=== PATIENT | male | born 1980 | race Caucasian/White ===

== ENCOUNTER 2024-07-30 22:52 | Inpatient (IN) | payer MEDICARE, OTHER, SELFPAY ==
[2024-07-30] VITALS (8 sets, daily range): BP systolic 94–160; BP diastolic 65–85; BMI 31.1
[2024-07-30 20:21] LABS: % Basophils 0.1 % (0-2); % Eosinophils 0.2 % (0-6); % Immature Granulocytes 0.5 % (0-0.5); % Lymphocytes 6.6 % (20.5-51.1); % Monocytes 8.6 % (1.7-9.3); Absolute Immature Granulocytes 0.1 10^3/uL (0-0.05); Absolute Lymphocytes 0.7 10^3/uL (1.2-3.4); Absolute Monocytes 0.9 10^3/uL (0.1-0.6); Hematocrit 38.9 % (39.0-52.0); Hemoglobin 12.7 g/dL (13.0-18.0); Mean Corp Hgb Conc. 32.6 g/dL (33.0-37.0); Mean Corpuscular Hgb 22.9 pg (27.0-31.0); Mean Corpuscular Volume 70.1 fL (80.0-94.0); Mean Platelet Volume 9.6 fL (7.4-10.4); Nucleated Red Blood Cells % 0 % (-); Platelet Count 206 10^3/uL (130-400); Red Blood Cell Count 5.55 10^6/uL (4.70-6.10); Red Cell Dist. Width 15.9 % (11.5-14.5); White Blood Cell Count 10.7 10^3/uL (4.8-10.8)
[2024-07-30 20:35] LABS: ALT (SGPT) 36 U/L (0-50); AST (SGOT) 51 U/L (17-59); Albumin 4.1 g/dl (3.5-5.0); Alkaline Phosphatase 71 U/L (38-126); Blood Urea Nitrogen 11 mg/dl (9-20); Calcium 9.1 mg/dl (8.4-10.2); Carbon Dioxide 24 mmol/L (22-30); Chloride 99 mmol/L (98-107); Estimated Creatinine Clearance > 125 ml/min; Glucose 119 mg/dl (70-99); Potassium 4.7 mmol/L (3.5-5.1); Sodium 133 mmol/L (135-145); Total Bilirubin 1.1 mg/dl (0.2-1.3); Total Protein 6.9 g/dl (6.3-8.2); eGFR > 60.00
[2024-07-30 20:41] LABS: COVID-19 Antigen Negative (Negative)
[2024-07-30 20:48] LABS: NT-proBNP 71.4 pg/ml; Troponin I < 0.012 ng/ml
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
[2024-07-30] MEDS: MAXIPIME 2000 MG IV (22:24)
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
[2024-07-30] MEDS: VANCOCIN 540 MG IV (22:51)
[2024-07-30] MEDS: TYLENOL 650 MG PO (23:42)
[2024-07-31] VITALS (12 sets, daily range): BP systolic 96–146; BP diastolic 61–97
[2024-07-31] MEDS: ZOSYN 50 IV ×5 (00:27→23:54)
[2024-07-31] MEDS: NSS 1000 IV ×3 (00:27→20:19)
[2024-07-31 06:42] LABS: ALT (SGPT) 30 U/L (0-50); AST (SGOT) 35 U/L (17-59); Albumin 3.4 g/dl (3.5-5.0); Alkaline Phosphatase 76 U/L (38-126); Blood Urea Nitrogen 11 mg/dl (9-20); Calcium 8.3 mg/dl (8.4-10.2); Carbon Dioxide 29 mmol/L (22-30); Chloride 98 mmol/L (98-107); Estimated Creatinine Clearance > 125 ml/min; Glucose 109 mg/dl (70-99); Potassium 4.2 mmol/L (3.5-5.1); Sodium 135 mmol/L (135-145); Total Bilirubin 1.4 mg/dl (0.2-1.3); eGFR > 60.00
[2024-07-31 06:46] LABS: % Basophils 0.2 % (0-2); % Eosinophils 0.7 % (0-6); % Immature Granulocytes 0.4 % (0-0.5); % Lymphocytes 16.1 % (20.5-51.1); % Neutrophils 73.6 % (42.2-75.2); Absolute Eosinophils 0.1 10^3/uL (0-0.7); Absolute Lymphocytes 1.3 10^3/uL (1.2-3.4); Absolute Monocytes 0.7 10^3/uL (0.1-0.6); Absolute Neutrophils 5.9 10^3/uL (1.4-6.5); Hematocrit 36.6 % (39.0-52.0); Hemoglobin 11.5 g/dL (13.0-18.0); Mean Corp Hgb Conc. 31.4 g/dL (33.0-37.0); Mean Corpuscular Hgb 22.7 pg (27.0-31.0); Mean Corpuscular Volume 72.3 fL (80.0-94.0); Mean Platelet Volume 10.2 fL (7.4-10.4); Nucleated Red Blood Cells % 0 % (-); Platelet Count 210 10^3/uL (130-400); Red Blood Cell Count 5.06 10^6/uL (4.70-6.10); Red Cell Dist. Width 16.1 % (11.5-14.5)
[2024-07-31] MEDS: NICODERM TRANSDERMAL 7 MG TRANSDERM (07:42)
[2024-07-31] MEDS: HEPARIN 5000 UNITS SC ×2 (07:43→20:19)
--- NOTE | 2024-07-31 08:35 | PHA.VAN.IN ---
Assessment
- Assessment
Renal Function: Unknown baseline (WNL)
Concomitant Antimicrobials: pip/tazo
AUC Dosing Plan
- Dosing Variables
Dosing Weight (kg): 101
Dosing CrCl (ml/min): 100
Vd coefficient (L/kg): 0.6
- Empiric Dosing
Initial / Loading Dose: 2000 mg LD 07/30 22:44
Maintenance Regimen: 1250 mg q12h
Estimated AUC (mcg*h/mL): 503
Estimated Peak (mcg*h/mL): 31.8
Estimated Trough (mcg/ml): 12.7
Estimated Half Life (H): 7.9
- Monitoring
No levels ordered at this time: consider levels after 4th maint. dose
Pharmacokinetics Vancomycin I
- -
Patient Age: 43
Patient Sex: Male
Vancomycin Day #: 1
Indication: Pulmonary/Respiratory
Requesting Provider: Jose L
Height / Weight:
Height 5 ft 11 in
Actual Weight 101.2 kg
Pertinent Past Medical History: BMI 31; former IV drug use; current amphetamine use
- Vital Signs / Lab Results
Temp Pulse Resp BP Pulse Ox
99.3 F 63 4 96/61 95
07/31/24 00:48 07/31/24 08:00 07/31/24 08:00 07/31/24 08:00 07/31/24 07:45
Lab Results - Hematology
07/30/24 07/31/24
20:14 05:54
WBC 10.7 8.0
Lab Results - Chemistry
07/30/24 07/31/24
20:14 05:54
BUN 11 11
Creatinine 0.8 0.8
Estimated Creat Clear > 125 > 125
Albumin 4.1 3.4 L
Microbiology Results
07/31/24 07:14 Legionella Urinary Antigen - Final
Urine Negative for Legionella pneumophila Serogroup 1 antigen.
A negative result does not rule out the possiblity of
Legionella infection due to other serogroups or species of
Legionella. Clinical correlation is recommended.
Streptococcus pneumoniae Antigen (M - Final
Negative for Streptococcus pneumoniae antigen.
A negative result does not exclude infection with
Streptococcus pneumoniae. Clinical correlation is
recommended.
07/30/24 20:14 Influenza Types A & B (BETH) - Final
Nasal Swab Negative for Influenza A & B, NAAT
Negative results must be combined with clinical observations
and patient history.
Nucleic Acid Amplification test (NAAT)performed on the
[employer] platform.
[2024-07-31] MEDS: VANCOCIN 275 MG IV ×2 (09:12→18:20)
[2024-07-31] MEDS: ANESTHETIC LOZENGE 1 LOZENGE PO (10:04)
--- NOTE | 2024-07-31 13:23 | PTOTSP ---
Speech Therapy Evaluation:
Pt presents with oropharyngeal swallow function that is likely baseline. Pt with decreased oral stage due to dentition, however mastication and bolus formation appears functional. No overt s/sx of aspiration observed.
Recommend:
1. IDDSI Level 7 (regular) and thin liquids
2. Medications as tolerated
3. Chew thoroughly, liquid wash
4. No further ST indicated. GREY TENDER to sign off
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
[2024-07-31] MEDS: METHADONE 100 MG/10 ML 50 MG PO (13:50)
[2024-07-31] MEDS: ZOFRAN 4 MG IV ×2 (14:55→20:19)
[2024-07-31 15:07] LABS: D-Dimer 1.02 ug/mlFEU (0.00-0.50)
--- NOTE | 2024-07-31 19:00 | EDRN ---
Report received, patient given his meal tray, resting comfortably at this time, call choe in reach, VSS
[2024-07-31] MEDS: TUMS CHEWABLE TABLET 200 MG PO (19:13)
--- NOTE | 2024-07-31 21:00 | EDRN ---
Patient throwing up, reports he has been nauseated all day, actively throwing up, did send hospitalist a tiger text and waiting on orders
[2024-07-31] MEDS: COMPAZINE 5 MG IV (21:19)
--- NOTE | 2024-07-31 23:24 | EDRN ---
Patient keeps talking oxygen out of nose and taking pulse ox off, have asked him several times to keep on and explained how important it is to leave on as his oxygen is dropping.
[2024-08-01] VITALS (11 sets, daily range): BP systolic 105–155; BP diastolic 58–93; BMI 29.3
--- NOTE | 2024-08-01 00:42 | EDRN ---
Patient is sleeping at this time, will continue to monitor, keep going back in patients room to put his oxygen back in his nose as he frequently takes it off.
[2024-08-01] MEDS: ZOSYN 50 IV ×4 (05:31→23:35)
[2024-08-01] MEDS: TYLENOL 650 MG PO ×2 (05:36→19:54)
--- NOTE | 2024-08-01 05:40 | EDRN ---
Enter patients room, he is very diaphoretic, took oral temp, 103.0, gave tylenol, also put patients oxygen back in his nose and reminded him why its important to wear it.
[2024-08-01 05:46] LABS: Hematocrit 39.3 % (39.0-52.0); Hemoglobin 12.8 g/dL (13.0-18.0); Mean Corp Hgb Conc. 32.6 g/dL (33.0-37.0); Mean Corpuscular Hgb 23.1 pg (27.0-31.0); Mean Corpuscular Volume 70.9 fL (80.0-94.0); Mean Platelet Volume 9.8 fL (7.4-10.4); Platelet Count 243 10^3/uL (130-400); Red Blood Cell Count 5.54 10^6/uL (4.70-6.10); Red Cell Dist. Width 15.9 % (11.5-14.5); White Blood Cell Count 11.7 10^3/uL (4.8-10.8)
--- NOTE | 2024-08-01 06:00 | EDRN ---
Patient sweating though gown, changed gown and wiped patient down, offered to reposition to be more comfortable patient refused a this time, placed oxygen back into patients nose again.
[2024-08-01] MEDS: VANCOCIN 275 MG IV ×2 (06:48→18:35)
[2024-08-01] MEDS: HEPARIN 5000 UNITS SC ×2 (07:55→19:54)
[2024-08-01] MEDS: NICODERM TRANSDERMAL 7 MG TRANSDERM (07:56)
[2024-08-01] MEDS: METHADONE 100 MG/10 ML 50 MG PO (07:57)
[2024-08-01] MEDS: NSS 1000 IV (08:07)
[2024-08-01 09:19] LABS: ALT (SGPT) 23 U/L (0-50); AST (SGOT) 29 U/L (17-59); Albumin 3.3 g/dl (3.5-5.0); Alkaline Phosphatase 75 U/L (38-126); Blood Urea Nitrogen 17 mg/dl (9-20); Calcium 8.4 mg/dl (8.4-10.2); Carbon Dioxide 27 mmol/L (22-30); Chloride 97 mmol/L (98-107); Estimated Creatinine Clearance > 125 ml/min; Glucose 119 mg/dl (70-99); Potassium 4.7 mmol/L (3.5-5.1); Sodium 133 mmol/L (135-145); Total Bilirubin 1.1 mg/dl (0.2-1.3); Total Protein 5.9 g/dl (6.3-8.2); eGFR > 60.00
--- NOTE | 2024-08-01 10:25 | PHA.VAN.FU ---
Vancomycin Assessment / Plan
- Assessment
Renal Function: Stable
WBC's are: Trending Up
In the past 24 hrs, patient has been: Febrile (103.0 -08/01/24 @ 05:35)
Concomitant Antimicrobials: piperacillin/tazobactam
- Dosing Plan
Continue: vancomycin 1250 mg q12h
- Monitoring Plan
Peak Level: 08/01/24 2100 - after 4th maint dose
Trough Level: 08/02/24 0530
- Follow Up
Pharmacy will continue to follow.
Vancomycin Follow UP
- -
Patient Age: 43
Patient Sex: Male
Vancomycin Day #: 2
Indication: Pulmonary/Respiratory
Requesting Provider: Jose L
Height / Weight:
Height 5 ft 11 in
Actual Weight 101.2 kg
Pertinent Past Medical History: BMI 31; former IV drug use; current amphetamine use
- Vital Signs / Lab Results
Temp Pulse Resp BP Pulse Ox
99.7 F 72 9 127/80 95
08/01/24 06:58 08/01/24 08:15 08/01/24 08:15 08/01/24 08:00 08/01/24 08:15
Lab Results - Hematology
07/30/24 07/31/24 08/01/24
20:14 05:54 05:30
WBC 10.7 8.0 11.7 H
Lab Results - Chemistry
07/30/24 07/31/24 08/01/24
20:14 05:54 08:55
BUN 11 11 17
Creatinine 0.8 0.8 0.9
Estimated Creat Clear > 125 > 125 > 125
Albumin 4.1 3.4 L 3.3 L
Microbiology Results
07/31/24 07:14 MRSA Screen - Final
Nose No Methicillin Resistant Staphylococcus aureus isolated.
07/30/24 22:11 Blood Culture - Preliminary
Blood/Venous No Growth in 24 hours- Final report to follow
07/31/24 09:18 Streptococcus Rapid Screen - Final
Throat/Pharynx Rapid Strep Screen (Group A) Negative
07/31/24 07:14 Legionella Urinary Antigen - Final
Urine Negative for Legionella pneumophila Serogroup 1 antigen.
A negative result does not rule out the possiblity of
Legionella infection due to other serogroups or species of
Legionella. Clinical correlation is recommended.
Streptococcus pneumoniae Antigen (M - Final
Negative for Streptococcus pneumoniae antigen.
A negative result does not exclude infection with
Streptococcus pneumoniae. Clinical correlation is
recommended.
07/30/24 20:14 Influenza Types A & B (BETH) - Final
Nasal Swab Negative for Influenza A & B, NAAT
Negative results must be combined with clinical observations
and patient history.
Nucleic Acid Amplification test (NAAT)performed on the
[employer] platform.
--- NOTE | 2024-08-01 11:35 | CM ---
CM reviewed chart
Pt from [facility]
Per notes, pt former IV drug user maintained on methadone
Current marijuana gummies and meth
Now on O2 bedside
CM will continue to follow for dc planning
Discharge Disposition- return [facility]
Phone- [phone] Fax- [phone]
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
--- NOTE | 2024-08-01 14:30 | PTCARENOTE ---
Patient admitted to floor from ED. Patient pleasant and cooperative. VSS. Regular diet ordered. Patient placed on tele reading NSR. COWs initiated per protocol. made aware.
--- NOTE | 2024-08-01 14:42 | PN.CDI ---
CDI
- -
CDI:
Physician Documentation Request
Admit Date: 07/30/24 22:52
Dear Doctor Jeramy,
Please review the following and provide your response in the progress notes.
Clinical Indicators:
Laboratory Tests
07/30/24 07/31/24 08/01/24
20:14 05:54 08:55
Sodium 133 L 135 133 L
Based on the above, please clarify in the progress notes, the appropriate diagnosis, if significant, that supports the above abnormalities and additional evaluation, monitoring and/or treatment rendered:
Hyponatremia
Abnormal Lab Value, Clinically Insignificant
Other(please specify)
Use of terms such as suspected, likely, concern for, or probable (associated with a specific diagnosis that is being evaluated, monitored, or treated as if it exists) are acceptable and can be coded in the inpatient setting, when documented at the
time of discharge.
Thank you,
Ursula Thomas RN BSN CCDS
CDI Specialist
please contact via tiger text
Please use your independent medical judgment in providing your response.
[2024-08-01] MEDS: ZOFRAN 4 MG IV (19:54)
[2024-08-01] MEDS: COMPAZINE 5 MG IV (22:00)
[2024-08-01] MEDS: XANAX 1 MG PO (22:31)
[2024-08-01 23:55] LABS: Vancomycin Peak 10.8 ug/ml (18-26)
[2024-08-02] MEDS: ROBITUSSIN DM 10 ML PO (02:59)
[2024-08-02] MEDS: TYLENOL 650 MG PO ×2 (02:59→19:41)
[2024-08-02 03:17] VITALS: BP 109/67
[2024-08-02] MEDS: ZOSYN 50 IV ×4 (05:43→23:08)
[2024-08-02 06:37] LABS: Glucose - Point of Care 124 mg/dl (70-99)
--- NOTE | 2024-08-02 06:51 | W.PN.UPDATE ---
Update Note
Progress Note Update
Patient noted with increased oxygen needs this am. He did receive Xanax x1 earlier and was able to sleep with anxiety controlled. Albuterol nebs added and patient encouraged to use IS to mobilize secretions.
[2024-08-02 07:14] LABS: % Basophils 0.4 % (0-2); % Eosinophils 1.5 % (0-6); % Immature Granulocytes 0.5 % (0-0.5); % Lymphocytes 13.3 % (20.5-51.1); % Monocytes 10.9 % (1.7-9.3); % Neutrophils 73.4 % (42.2-75.2); Absolute Eosinophils 0.1 10^3/uL (0-0.7); Absolute Lymphocytes 1.1 10^3/uL (1.2-3.4); Absolute Monocytes 0.9 10^3/uL (0.1-0.6); Absolute Neutrophils 5.8 10^3/uL (1.4-6.5); Hemoglobin 12.4 g/dL (13.0-18.0); Mean Corp Hgb Conc. 31.8 g/dL (33.0-37.0); Mean Corpuscular Hgb 23.4 pg (27.0-31.0); Mean Corpuscular Volume 73.7 fL (80.0-94.0); Mean Platelet Volume 10.6 fL (7.4-10.4); Nucleated Red Blood Cells % 0 % (-); Platelet Count 222 10^3/uL (130-400); Red Blood Cell Count 5.29 10^6/uL (4.70-6.10); Red Cell Dist. Width 16.2 % (11.5-14.5); White Blood Cell Count 7.9 10^3/uL (4.8-10.8)
[2024-08-02 07:20] VITALS: BP 118/72
[2024-08-02 07:28] LABS: Vancomycin Trough 5.5 ug/ml (5-20)
[2024-08-02] MEDS: VENTOLIN NEBULES 1.25 MG INH ×4 (07:28→19:53)
[2024-08-02 07:35] LABS: ALT (SGPT) 21 U/L (0-50); AST (SGOT) 27 U/L (17-59); Albumin 3.4 g/dl (3.5-5.0); Alkaline Phosphatase 96 U/L (38-126); Blood Urea Nitrogen 14 mg/dl (9-20); Calcium 8.4 mg/dl (8.4-10.2); Chloride 96 mmol/L (98-107); Glucose 102 mg/dl (70-99); Potassium 4.3 mmol/L (3.5-5.1); Sodium 136 mmol/L (135-145)
[2024-08-02] MEDS: VANCOCIN 275 MG IV (07:37)
[2024-08-02 07:44] LABS: Carbon Dioxide 29 mmol/L (22-30); Estimated Creatinine Clearance 110 ml/min; Total Protein 6.1 g/dl (6.3-8.2); eGFR > 60.00
[2024-08-02] MEDS: NICODERM TRANSDERMAL 7 MG TRANSDERM (08:28)
[2024-08-02] MEDS: HEPARIN 5000 UNITS SC ×2 (08:28→19:41)
[2024-08-02] MEDS: METHADONE 100 MG/10 ML 50 MG PO (08:28)
--- NOTE | 2024-08-02 08:35 | PHA.VAN.FU ---
Vancomycin Assessment / Plan
- Assessment
Renal Function: Stable
WBC's are: WNL
Concomitant Antimicrobials: piperacillin/tazobactam
- Assessment - Therapeutic Drug Monitoring
Extrapolated Cmax (mcg/mL): 15.3
Peak level was drawn: More than 3 hours after previous dose (Peak drawn late so calculations are not as accurate. Peak underestimated from true value which may lead to underestimation of AUC and overestimation of half-life)
Extrapolated Cmin (mcg/mL): 5
Trough Drawn: Appropriately
Levels were drawn: At steady state (levels drawn after 4th maintenance dose)
Calculated AUC (mcg*h/mL): 223
Calculated ke: 0.1068
Calculated half life (H): 6.5
Calculated Vd (L): 105 (~1.1 L/kg)
Calculated Vanc CL (ml/min): 186
Accuracy of above calculations reduced since peak was drawn late
Trough drawn appropriately is subtherapeutic
- Dosing Plan
Adjust Regimen to: Vanc 1000mg Q8H - first dose at 1400
Dosing Comments: adjusting based on low trough
- Monitoring Plan
No level(s) ordered at this time: consider levels in next few days
- Follow Up
Pharmacy will continue to follow.
Vancomycin Follow UP
- -
Patient Age: 43
Patient Sex: Male
Vancomycin Day #: 3
Indication: Pulmonary/Respiratory
Requesting Provider: Jose L
Pertinent Antimicrobial Allergies:
NKDA
Height / Weight:
Height 5 ft 11 in
Actual Weight 95.2 kg
Pertinent Past Medical History: BMI ~30, former IV MEAGHAN
- Vital Signs / Lab Results
Temp Pulse Resp BP Pulse Ox
98.4 F 70 16 118/72 95
08/02/24 07:20 08/02/24 07:33 08/02/24 07:33 08/02/24 07:20 08/02/24 07:33
Lab Results - Hematology
07/30/24 07/31/24 08/01/24
20:14 05:54 05:30
WBC 10.7 8.0 11.7 H
08/02/24
05:39
WBC 7.9
Lab Results - Chemistry
07/30/24 07/31/24 08/01/24
20:14 05:54 08:55
BUN 11 11 17
Creatinine 0.8 0.8 0.9
Estimated Creat Clear > 125 > 125 > 125
Albumin 4.1 3.4 L 3.3 L
08/02/24
05:39
BUN 14
Creatinine 0.9
Estimated Creat Clear 110
Albumin 3.4 L
Microbiology Results
07/30/24 22:11 Blood Culture - Preliminary
Blood/Venous No Growth in 48 hours- Final report to follow
07/31/24 09:18 Streptococcus Screen ([facility]) - Preliminary
Throat/Pharynx Culture in Progress
Streptococcus Rapid Screen - Final
Rapid Strep Screen (Group A) Negative
07/31/24 07:14 MRSA Screen - Final
Nose No Methicillin Resistant Staphylococcus aureus isolated.
07/31/24 07:14 Legionella Urinary Antigen - Final
Urine Negative for Legionella pneumophila Serogroup 1 antigen.
A negative result does not rule out the possiblity of
Legionella infection due to other serogroups or species of
Legionella. Clinical correlation is recommended.
Streptococcus pneumoniae Antigen (M - Final
Negative for Streptococcus pneumoniae antigen.
A negative result does not exclude infection with
Streptococcus pneumoniae. Clinical correlation is
recommended.
Therapeutic Drug Monitoring
Vancomycin Peak 10.8 ug/ml (18-26) L 08/01/24 23:20
Vancomycin Trough 5.5 ug/ml (5-20) 08/02/24 05:39
[2024-08-02] MEDS: MUCINEX 1200 MG PO ×2 (10:22→19:41)
--- NOTE | 2024-08-02 11:27 | W.PN.HOSP.TC ---
Addendum entered and electronically signed by Yassine Deshpande MD 08/02/24 11:41:
Hyponatremia
resolved
Original Note:
Today's Communication/Plan
-
monitor vitals
see plan
cw abx
wean o2 as tolerated
added cough meds
cw IS
monitor mental status
Assessment / Plan
Assessment / Plan
# Right-sided pneumonia likely aspiration pneumonia
Acute hypoxic respiratory failure secondary to pneumonia, currently on 5 L. Wean oxygen as tolerated. was placed on 6L overnight. Patient tends to take o2 off at times. Consider pulmonary evaluation if hypoxia worse
start mucinex,tessalon pearls; cw IS
-COVID-negative, influenza negative
-Check sputum culture, strep antigen neg, Legionella -NEG, MRSA
-Check blood culture -pending
-cw Vancomycin/Zosyn
-cw speech and swallow; ok for regular with thin
Left posterior lower pleuritic chest pain-suspect probably pleurisy. CT chest with b/l PNA; neg for PE
History of amphetamine use
-Last used 8 days ago
Former IV heroin user
-Continue methadone
check UDS
Marijuana gummy user
Smoker
-Smokes 1 pack of cigarettes per week
-Nicotine patch
Essential hypertension
Anxiety/PTSD
-Continue Seroquel
History of liver laceration
History of renal failure secondary to drug overdose
Full code
DVT prophylaxis�heparin
Regular diet
General: No Apparent Distress
HEENT: Moist Mucous Membranes
Respiratory: Rhonchi (RLL), Non Labored Respirations and Other (Complaint of left posterior lower thoracic pleuritic pain on exam)
Cardiac: Regular Rhythm and S1/S2; Negative Tachycardic
Neuro: AO x 3
Psych: Calm; Negative Confused or Agitated
Anticipated Discharge: > 48 hours
Subjective/Interval History
-
Date of Service: August 02, 2024
denies pain
Objective Data
-
Labs:
Laboratory Results
08/02/24
05:39
WBC 7.9
Hgb 12.4 L
Hct 39.0
Plt Count 222
Sodium 136
Potassium 4.3
Chloride 96 L
Carbon Dioxide 29
BUN 14
Creatinine 0.9
Glucose 102 H
Calcium 8.4
Total Bilirubin 1.0
AST 27
ALT 21
Alkaline Phosphatase 96
Vital Signs:
Vital Signs
Temp Pulse Resp BP Pulse Ox
98.4 F 75 18 118/72 92
08/02/24 07:20 08/02/24 11:23 08/02/24 11:23 08/02/24 07:20 08/02/24 11:23
I&O
08/01/24 08/02/24 08/03/24
06:59 06:59 06:59
Intake Total 2960 / 2960 2165 / 2165
Output Total 3800 / 3800 2650 / 2650
Balance -840 / -840 -485 / -485
[2024-08-02 11:29] VITALS: BP 109/68
--- NOTE | 2024-08-02 12:24 | CM ---
Patient from [facility] - security at bedside.
Dx: aspiration pneumonia
Cont with IV abx, Patient now on 6L 02
PLAN: Discharge when stable to [facility]
Security to transport
--- NOTE | 2024-08-02 12:36 | PTCARENOTE ---
Addendum entered by Venessa Kevin RN 08/02/24 13:11:
complete bed bath with soap and water done at bedside with this nurse. pt sat on side of bed was oriented and compliant with care. new sheets, underwear and gown were put on with this nurse. pt cuffed by L wrist to bottom of bed so that proper
hygiene could be done with patient.
Original Note:
nurse reached out to MD about pt increased of sleeping and drowsiness post methadone. pt states that he was on 8mg prior to incarceration but he did use right before being processed so they increased him to 50mg. after discussion with MD dose
decreased starting tomorrow morning.
[2024-08-02] MEDS: VANCOCIN 200 IV (14:05)
[2024-08-02 15:23] LABS: Amphetamines Negative (Negative); Barbiturates Negative (Negative); Benzodiazepines Positive (Negative); Buprenorphine Negative (Negative); Cocaine Negative (Negative); Marijuana Positive (Negative); Methadone Positive (Negative); Methamphetamines Negative (Negative); Opiates Negative (Negative); Phencyclidine Negative (Negative); Tricyclic Antidepressants Negative (Negative)
[2024-08-02 15:40] LABS: Fentanyl, Urine Negative (Negative)
[2024-08-02] MEDS: TESSALON PERLES 200 MG PO ×2 (15:46→23:08)
[2024-08-02] MEDS: ZOFRAN 4 MG IV (15:50)
[2024-08-02 15:52] VITALS: BP 128/70
[2024-08-02] MEDS: COMPAZINE 5 MG IV (17:16)
[2024-08-02 19:21] VITALS: BP 119/80
[2024-08-02 23:20] VITALS: BP 122/65
[2024-08-03 03:17] VITALS: BP 135/74
[2024-08-03] MEDS: ZOSYN 50 IV ×4 (05:31→23:42)
[2024-08-03] MEDS: ZOFRAN 4 MG IV ×2 (05:33→16:57)
[2024-08-03 07:20] VITALS: BP 109/54
[2024-08-03] MEDS: VENTOLIN NEBULES 1.25 MG INH ×4 (07:21→19:27)
[2024-08-03 08:08] LABS: % Basophils 0.3 % (0-2); % Eosinophils 1.1 % (0-6); % Immature Granulocytes 0.8 % (0-0.5); % Lymphocytes 10.7 % (20.5-51.1); % Monocytes 9.2 % (1.7-9.3); % Neutrophils 77.9 % (42.2-75.2); Absolute Eosinophils 0.1 10^3/uL (0-0.7); Absolute Immature Granulocytes 0.1 10^3/uL (0-0.05); Absolute Monocytes 0.9 10^3/uL (0.1-0.6); Absolute Neutrophils 7.3 10^3/uL (1.4-6.5); Hematocrit 36.7 % (39.0-52.0); Hemoglobin 11.8 g/dL (13.0-18.0); Mean Corp Hgb Conc. 32.2 g/dL (33.0-37.0); Mean Corpuscular Volume 71.4 fL (80.0-94.0); Mean Platelet Volume 10.1 fL (7.4-10.4); Nucleated Red Blood Cells % 0 % (-); Platelet Count 275 10^3/uL (130-400); Red Blood Cell Count 5.14 10^6/uL (4.70-6.10); Red Cell Dist. Width 16.3 % (11.5-14.5); White Blood Cell Count 9.4 10^3/uL (4.8-10.8)
[2024-08-03 08:20] LABS: ALT (SGPT) 21 U/L (0-50); AST (SGOT) 30 U/L (17-59); Albumin 3.5 g/dl (3.5-5.0); Alkaline Phosphatase 122 U/L (38-126); Blood Urea Nitrogen 14 mg/dl (9-20); Calcium 8.5 mg/dl (8.4-10.2); Carbon Dioxide 31 mmol/L (22-30); Chloride 93 mmol/L (98-107); Estimated Creatinine Clearance 124 ml/min; Glucose 123 mg/dl (70-99); Potassium 4.4 mmol/L (3.5-5.1); Sodium 134 mmol/L (135-145); Total Bilirubin 0.6 mg/dl (0.2-1.3); Total Protein 6.2 g/dl (6.3-8.2); eGFR > 60.00
[2024-08-03] MEDS: HEPARIN 5000 UNITS SC ×2 (08:43→20:22)
[2024-08-03] MEDS: TYLENOL 650 MG PO (08:43)
[2024-08-03] MEDS: TESSALON PERLES 200 MG PO ×2 (08:44→23:42)
[2024-08-03] MEDS: METHADONE 100 MG/10 ML 40 MG PO (08:44)
[2024-08-03] MEDS: MUCINEX 1200 MG PO ×2 (08:44→20:27)
[2024-08-03] MEDS: NICODERM TRANSDERMAL 7 MG TRANSDERM (08:44)
[2024-08-03] MEDS: COMPAZINE 5 MG IV (08:49)
[2024-08-03] MEDS: TUMS CHEWABLE TABLET 200 MG PO (08:49)
[2024-08-03 11:10] VITALS: BP 123/73
--- NOTE | 2024-08-03 11:36 | W.PN.HOSP.TC ---
Addendum entered and electronically signed by Yassine Deshpande MD 08/03/24 11:53:
Hyponatremia
monitor
Original Note:
Today's Communication/Plan
-
Monitor vital signs see plan
Add Protonix
Wean oxygen as tolerated
Continue with antibiotics
Follow fever curve, if continues to be febrile then will need ID evaluation
cw methadone
Assessment / Plan
Assessment / Plan
# Right-sided pneumonia likely aspiration pneumonia given recent N/V
Acute hypoxic respiratory failure secondary to pneumonia, currently on 5 L. Wean oxygen as tolerated. currently on 5-6L. Patient tends to take o2 off at times. Consider pulmonary evaluation if hypoxia worse
start mucinex,tessalon pearls; cw IS
-COVID-negative, influenza negative
-Check sputum culture, strep antigen neg, Legionella -NEG, MRSA
-Check blood culture -NGTD
follow fever curve; if fever persist then will need ID evaluation
-cw zosyn; vanc stopped; MRSA neg; sputum cx contaminant
-cw speech and swallow; ok for regular with thin
Left posterior lower pleuritic chest pain-suspect probably pleurisy. CT chest with b/l PNA; neg for PE
History of amphetamine use
-Last used 8 days ago
Former IV heroin user
-Continue methadone; dose lowered; used to be on much lower dose before and dose recently increased but he has been lethargic majority of the times so lowered the dose. patient aware and agreeable
check UDS + for marijuana,benzos,methadone; benzos likely + since got xanax here in hospital
Mild hyponatremia
monitor
Marijuana gummy user
Smoker
-Smokes 1 pack of cigarettes per week
-Nicotine patch
Essential hypertension
Anxiety/PTSD
-Continue Seroquel
History of liver laceration
History of renal failure secondary to drug overdose
Full code
DVT prophylaxis�heparin
Regular diet
General: No Apparent Distress
HEENT: Moist Mucous Membranes
Respiratory: Rhonchi (RLL), Non Labored Respirations
Cardiac: Regular Rhythm and S1/S2; Negative Tachycardic
Neuro: AO x 3
Psych: Calm; Negative Confused or Agitated
I spent a total of 52 minutes with the patient or on the floor. More than 50% of this time involved counseling and coordination of care.
Anticipated Discharge: 24 - 48 hours
Subjective/Interval History
-
Date of Service: August 03, 2024
denies pain
Objective Data
-
Labs:
Laboratory Results
08/03/24
07:20
WBC 9.4
Hgb 11.8 L
Hct 36.7 L
Plt Count 275 D
Sodium 134 L
Potassium 4.4
Chloride 93 L
Carbon Dioxide 31 H
BUN 14
Creatinine 0.8
Glucose 123 H
Calcium 8.5
Total Bilirubin 0.6
AST 30
ALT 21
Alkaline Phosphatase 122
Vital Signs:
Vital Signs
Temp Pulse Resp BP Pulse Ox
98.2 F 90 16 123/73 97
08/03/24 11:10 08/03/24 11:18 08/03/24 11:18 08/03/24 11:10 08/03/24 11:10
I&O
08/02/24 08/03/24 08/04/24
06:59 06:59 06:59
Intake Total 2165 / 2165 2135 / 2135
Output Total 2650 / 2650 1700 / 1700
Balance -485 / -485 435 / 435
[2024-08-03] MEDS: MAALOX 30 ML PO (11:50)
[2024-08-03] MEDS: PROTONIX 40 MG PO (11:50)
--- NOTE | 2024-08-03 13:00 | PTCARENOTE ---
Pt with nausea and vomiting. Md made aware on rounds. Maalox and Protonix ordered and administered per order.
[2024-08-03 15:15] VITALS: BP 106/58
--- NOTE | 2024-08-03 15:21 | CM ---
CM reviewed chart, Patient from [facility].
Cont with IV abx, Patient on 6L 02
Discharge Disposition- return [facility]
Phone- [phone]
Fax- [phone]
[2024-08-03] MEDS: TESSALON PERLES PO (16:57)
--- NOTE | 2024-08-03 18:27 | PTCARENOTE ---
Pt. with choking episode on grape. Pt. stated he threw up the whole grape. Md made aware. No new orders. Hour later pt. with same discomfort and states 'feels like something is stuck in my throat.' Md made aware. Portable xray ordered.
[2024-08-03 19:00] VITALS: BP 127/85
[2024-08-03 23:30] VITALS: BP 137/65
[2024-08-04 03:30] VITALS: BP 112/55
[2024-08-04] MEDS: ZOSYN 50 IV ×4 (05:56→23:08)
[2024-08-04 06:53] LABS: % Basophils 0.6 % (0-2); % Eosinophils 1.9 % (0-6); % Immature Granulocytes 1.2 % (0-0.5); % Lymphocytes 14.5 % (20.5-51.1); % Monocytes 11.3 % (1.7-9.3); % Neutrophils 70.5 % (42.2-75.2); Absolute Eosinophils 0.1 10^3/uL (0-0.7); Absolute Immature Granulocytes 0.1 10^3/uL (0-0.05); Absolute Monocytes 0.8 10^3/uL (0.1-0.6); Absolute Neutrophils 4.8 10^3/uL (1.4-6.5); Hematocrit 37.3 % (39.0-52.0); Hemoglobin 12.1 g/dL (13.0-18.0); Mean Corp Hgb Conc. 32.4 g/dL (33.0-37.0); Mean Corpuscular Hgb 23.9 pg (27.0-31.0); Mean Corpuscular Volume 73.6 fL (80.0-94.0); Mean Platelet Volume 10.2 fL (7.4-10.4); Nucleated Red Blood Cells % 0 % (-); Platelet Count 256 10^3/uL (130-400); Red Blood Cell Count 5.07 10^6/uL (4.70-6.10); Red Cell Dist. Width 16.6 % (11.5-14.5); White Blood Cell Count 6.8 10^3/uL (4.8-10.8)
[2024-08-04 07:14] LABS: ALT (SGPT) 24 U/L (0-50); AST (SGOT) 36 U/L (17-59); Albumin 3.3 g/dl (3.5-5.0); Alkaline Phosphatase 123 U/L (38-126); Blood Urea Nitrogen 14 mg/dl (9-20); Calcium 8.2 mg/dl (8.4-10.2); Carbon Dioxide 30 mmol/L (22-30); Chloride 94 mmol/L (98-107); Estimated Creatinine Clearance 124 ml/min; Glucose 97 mg/dl (70-99); Potassium 4.5 mmol/L (3.5-5.1); Sodium 136 mmol/L (135-145); Total Bilirubin 0.4 mg/dl (0.2-1.3); Total Protein 6.1 g/dl (6.3-8.2); eGFR > 60.00
[2024-08-04 07:20] VITALS: BP 111/60
[2024-08-04] MEDS: VENTOLIN NEBULES 1.25 MG INH ×4 (07:23→19:52)
[2024-08-04] MEDS: MUCINEX 1200 MG PO ×2 (07:42→21:04)
[2024-08-04] MEDS: PROTONIX 40 MG PO (07:42)
[2024-08-04] MEDS: HEPARIN 5000 UNITS SC ×2 (07:42→21:03)
[2024-08-04] MEDS: TESSALON PERLES 200 MG PO ×3 (07:42→21:04)
[2024-08-04] MEDS: NICODERM TRANSDERMAL 7 MG TRANSDERM (07:43)
[2024-08-04] MEDS: METHADONE 100 MG/10 ML 40 MG PO (07:43)
--- NOTE | 2024-08-04 10:41 | PTCARENOTE ---
RN tried to wean o2. Pulse ox dropped. Patient 89-93% on 6 L o2.
[2024-08-04 11:05] VITALS: BP 129/68
--- NOTE | 2024-08-04 11:22 | W.PN.HOSP.TC ---
Today's Communication/Plan
-
Monitor vital signs
see plan
Wean oxygen as tolerated
Continue with antibiotics
Follow fever curve
Assessment / Plan
Assessment / Plan
# Right-sided pneumonia likely aspiration pneumonia given recent N/V
Acute hypoxic respiratory failure secondary to pneumonia. Wean oxygen as tolerated. currently on 5-6L. Patient tends to take o2 off at times. Consider pulmonary evaluation if hypoxia worse
start mucinex,tessalon pearls; cw IS
-COVID-negative, influenza negative
-Check sputum culture, strep antigen neg, Legionella -NEG, MRSA
-Check blood culture -NGTD
follow fever curve; if fever persist then will need ID evaluation
-cw zosyn; vanc stopped; MRSA neg; sputum cx contaminant
-cw speech and swallow; ok for regular with thin
Left posterior lower pleuritic chest pain-suspect probably pleurisy. CT chest with b/l PNA; neg for PE
History of amphetamine use
-Last used 8 days ago
Former IV heroin user
-Continue methadone; dose lowered; used to be on much lower dose before and dose recently increased but he has been lethargic majority of the times so lowered the dose. patient aware and agreeable
check UDS + for marijuana,benzos,methadone; benzos likely + since got xanax here in hospital
1 episode of choking 08/03 on grape which he ended up spitting it out
xray without acute finding and shows pneumonia which we already know
Mild hyponatremia
monitor
Marijuana gummy user
Smoker
-Smokes 1 pack of cigarettes per week
-Nicotine patch
Essential hypertension
Anxiety/PTSD
History of liver laceration
History of renal failure secondary to drug overdose
Full code
DVT prophylaxis�heparin
Regular diet
General: No Apparent Distress
HEENT: Moist Mucous Membranes
Respiratory: Rhonchi (RLL), Non Labored Respirations
Cardiac: Regular Rhythm and S1/S2; Negative Tachycardic
Neuro: AO x 3
Psych: Calm; Negative Confused or Agitated
I spent a total of 51 minutes with the patient or on the floor. More than 50% of this time involved counseling and coordination of care.
Anticipated Discharge: 24 - 48 hours
Subjective/Interval History
-
Date of Service: August 04, 2024
denies pain
Objective Data
-
Labs:
Laboratory Results
08/04/24
05:27
WBC 6.8
Hgb 12.1 L
Hct 37.3 L
Plt Count 256
Sodium 136
Potassium 4.5
Chloride 94 L
Carbon Dioxide 30
BUN 14
Creatinine 0.8
Glucose 97
Calcium 8.2 L
Total Bilirubin 0.4
AST 36
ALT 24
Alkaline Phosphatase 123
Vital Signs:
Vital Signs
Temp Pulse Resp BP Pulse Ox
100 F 80 16 111/60 93
08/04/24 03:30 08/04/24 07:27 08/04/24 07:27 08/04/24 07:20 08/04/24 10:40
I&O
08/03/24 08/04/24 08/05/24
06:59 06:59 06:59
Intake Total 2135 / 2135 2680 / 2680
Output Total 1700 / 1700 2810 / 2810
Balance 435 / 435 -130 / -130
[2024-08-04 15:20] VITALS: BP 121/70
[2024-08-04] MEDS: ZOFRAN 4 MG IV (15:51)
--- NOTE | 2024-08-04 17:20 | CM ---
Patient continues on IV abx.
02 at 5L
Security at bedside
PLAN: Return to [facility]
[2024-08-04 19:28] VITALS: BP 132/78
[2024-08-04] MEDS: MELATONIN 5 MG PO (21:04)
[2024-08-04] MEDS: MOTRIN 400 MG PO (21:21)
--- NOTE | 2024-08-04 21:40 | PTCARENOTE ---
Patient c/o Left ear pain; patient states that he has a history of frequent ear infections; [employer]-patient requesting Ibuprofen; order obtained for STAT Ibuprofen 400 mg PO; SEE DEC.
[2024-08-04 23:10] VITALS: BP 94/66
[2024-08-05 03:07] VITALS: BP 111/69
[2024-08-05] MEDS: ZOSYN 50 IV ×3 (05:59→18:25)
[2024-08-05] MEDS: MOTRIN 400 MG PO (06:16)
[2024-08-05 06:32] LABS: % Basophils 0.8 % (0-2); % Eosinophils 2.1 % (0-6); % Immature Granulocytes 1.3 % (0-0.5); % Lymphocytes 13.3 % (20.5-51.1); % Monocytes 9.5 % (1.7-9.3); Absolute Basophils 0.1 10^3/uL (0-0.2); Absolute Eosinophils 0.1 10^3/uL (0-0.7); Absolute Immature Granulocytes 0.1 10^3/uL (0-0.05); Absolute Lymphocytes 0.8 10^3/uL (1.2-3.4); Absolute Monocytes 0.6 10^3/uL (0.1-0.6); Absolute Neutrophils 4.4 10^3/uL (1.4-6.5); Hematocrit 42.4 % (39.0-52.0); Hemoglobin 13.6 g/dL (13.0-18.0); Mean Corp Hgb Conc. 32.1 g/dL (33.0-37.0); Mean Corpuscular Hgb 23.5 pg (27.0-31.0); Mean Corpuscular Volume 73.4 fL (80.0-94.0); Mean Platelet Volume 9.9 fL (7.4-10.4); Nucleated Red Blood Cells % 0 % (-); Platelet Count 267 10^3/uL (130-400); Red Blood Cell Count 5.78 10^6/uL (4.70-6.10); Red Cell Dist. Width 17.5 % (11.5-14.5); White Blood Cell Count 6.1 10^3/uL (4.8-10.8)
[2024-08-05 07:05] LABS: ALT (SGPT) 30 U/L (0-50); AST (SGOT) 41 U/L (17-59); Albumin 3.6 g/dl (3.5-5.0); Alkaline Phosphatase 127 U/L (38-126); Blood Urea Nitrogen 12 mg/dl (9-20); Calcium 8.7 mg/dl (8.4-10.2); Carbon Dioxide 31 mmol/L (22-30); Chloride 97 mmol/L (98-107); Estimated Creatinine Clearance 124 ml/min; Glucose 104 mg/dl (70-99); Potassium 4.7 mmol/L (3.5-5.1); Sodium 138 mmol/L (135-145); Total Bilirubin 0.6 mg/dl (0.2-1.3); Total Protein 6.7 g/dl (6.3-8.2); eGFR > 60.00
[2024-08-05] MEDS: VENTOLIN NEBULES 1.25 MG INH ×3 (07:16→15:06)
[2024-08-05 08:10] VITALS: BP 153/83
[2024-08-05] MEDS: MUCINEX 1200 MG PO ×2 (09:15→21:07)
[2024-08-05] MEDS: TESSALON PERLES 200 MG PO ×2 (09:15→16:03)
[2024-08-05] MEDS: METHADONE 100 MG/10 ML 40 MG PO (09:15)
[2024-08-05] MEDS: NICODERM TRANSDERMAL 7 MG TRANSDERM (09:15)
[2024-08-05] MEDS: PROTONIX 40 MG PO (09:15)
[2024-08-05] MEDS: HEPARIN 5000 UNITS SC ×2 (09:16→21:06)
--- NOTE | 2024-08-05 10:38 | W.PN.HOSP.TC ---
Today's Communication/Plan
-
monitor vitals
see plan
on 3 L; wean o2 as tolerated
follow fever curve
cw abx
Assessment / Plan
Assessment / Plan
# Right-sided pneumonia likely aspiration pneumonia given recent N/V
Acute hypoxic respiratory failure secondary to pneumonia. Wean oxygen as tolerated. currently on 3L. Patient tends to take o2 off at times. Consider pulmonary evaluation if hypoxia worse
start mucinex,tessalon pearls; cw IS
-COVID-negative, influenza negative
-Check sputum culture, strep antigen neg, Legionella -NEG, MRSA
-Check blood culture -NGTD
follow fever curve; if fever persist then will need ID evaluation
-cw zosyn; vanc stopped; MRSA neg; sputum cx contaminant
-cw speech and swallow; ok for regular with thin
Left posterior lower pleuritic chest pain-suspect probably pleurisy. CT chest with b/l PNA; neg for PE
History of amphetamine use
-Last used 8 days ago
Former IV heroin user
-Continue methadone; dose lowered; used to be on much lower dose before and dose recently increased but he has been lethargic majority of the times so lowered the dose. patient aware and agreeable
check UDS + for marijuana,benzos,methadone; benzos likely + since got xanax here in hospital
1 episode of choking 08/03 on grape which he ended up spitting it out
xray without acute finding and shows pneumonia which we already know
Mild hyponatremia
monitor
Marijuana gummy user
Smoker
-Smokes 1 pack of cigarettes per week
-Nicotine patch
Essential hypertension
Anxiety/PTSD
History of liver laceration
History of renal failure secondary to drug overdose
Full code
DVT prophylaxis�heparin
Regular diet
General: No Apparent Distress
HEENT: Moist Mucous Membranes
Respiratory: Rhonchi (RLL), Non Labored Respirations
Cardiac: Regular Rhythm and S1/S2; Negative Tachycardic
Neuro: AO x 3
Psych: Calm; Negative Confused or Agitated
Anticipated Discharge: 24 - 48 hours
Subjective/Interval History
-
Date of Service: August 05, 2024
denies pain
Objective Data
-
Labs:
Laboratory Results
08/05/24
06:10
WBC 6.1
Hgb 13.6
Hct 42.4
Plt Count 267
Sodium 138
Potassium 4.7
Chloride 97 L
Carbon Dioxide 31 H
BUN 12
Creatinine 0.8
Glucose 104 H
Calcium 8.7
Total Bilirubin 0.6
AST 41
ALT 30
Alkaline Phosphatase 127 H
Vital Signs:
Vital Signs
Temp Pulse Resp BP Pulse Ox
98.8 F 83 17 153/83 96
08/05/24 08:10 08/05/24 08:10 08/05/24 08:10 08/05/24 08:10 08/05/24 08:10
I&O
08/04/24 08/05/24 08/06/24
06:59 06:59 06:59
Intake Total 2680 / 2680 1900 / 1900
Output Total 2810 / 2810 2580 / 2580
Balance -130 / -130 -680 / -680
[2024-08-05 12:10] VITALS: BP 137/37
--- NOTE | 2024-08-05 12:46 | PTCARENOTE ---
pt O2 weaned this afternoon to 1L and then to room air. pt sat is 93-96 RA. home O2 assessment set for tomorrow per
--- NOTE | 2024-08-05 14:23 | CM ---
Met with patient - security at bedside
Cont on IV Zosyn, cont to wean 02
PLAN: [facility]
[2024-08-05 15:30] VITALS: BP 167/84
[2024-08-05 19:16] VITALS: BP 152/81
--- NOTE | 2024-08-05 19:31 | PTCARENOTE ---
pt states he had three loose stools this shift. pt refused to let zosyn finish this evening and is asking to not be connected to anymore abx at this time. pt remains on room air.
[2024-08-05] MEDS: VENTOLIN NEBULES INH (20:44)
[2024-08-05] MEDS: MELATONIN PO (21:10)
[2024-08-05] MEDS: TESSALON PERLES PO (21:10)
--- NOTE | 2024-08-05 21:26 | PTCARENOTE ---
Was asked to change isolation to standard precautions per nursing working supervisor. Patient will be transferred to [address] [place] [address].
--- NOTE | 2024-08-05 22:15 | PTCARENOTE ---
Patient transferred to [facility] from -- COs present, patient alert and oriented, requesting medication for sleep but refusing the melatonin that is ordered. Patient refusing antibiotics and expressed to this RN that they are making him have
diarrhea, he does not want to take any further doses. No c/o pain at this time. Call choe within reach, patient comfortable in bed at this time. COs at bedside. Will monitor.
--- NOTE | 2024-08-05 22:22 | PTCARENOTE ---
Report called to Michelle on [facility]. Patient transferred to [facility] 336 bed 1 accompanied by 2 guards. Patient transferred successfully.
[2024-08-05 22:26] VITALS: BP 132/86
[2024-08-06] MEDS: ZOSYN IV ×3 (00:23→11:49)
--- NOTE | 2024-08-06 06:34 | PTCARENOTE ---
Patient refusing IV abx Zosyn at this time. Also refused to have last set of vital signs taken. Appears to be sleeping in bed comfortably, COs at bedside. Call choe within reach. Will continue to monitor.
[2024-08-06 07:00] VITALS: BP 153/89
[2024-08-06 07:01] LABS: % Eosinophils 1.4 % (0-6); % Immature Granulocytes 1.2 % (0-0.5); % Lymphocytes 19.9 % (20.5-51.1); % Monocytes 8.8 % (1.7-9.3); % Neutrophils 67.7 % (42.2-75.2); Absolute Basophils 0.1 10^3/uL (0-0.2); Absolute Eosinophils 0.1 10^3/uL (0-0.7); Absolute Immature Granulocytes 0.1 10^3/uL (0-0.05); Absolute Monocytes 0.5 10^3/uL (0.1-0.6); Absolute Neutrophils 3.5 10^3/uL (1.4-6.5); Hematocrit 43.4 % (39.0-52.0); Hemoglobin 14.7 g/dL (13.0-18.0); Mean Corp Hgb Conc. 33.9 g/dL (33.0-37.0); Mean Corpuscular Hgb 23.8 pg (27.0-31.0); Mean Corpuscular Volume 70.3 fL (80.0-94.0); Mean Platelet Volume 10.5 fL (7.4-10.4); Nucleated Red Blood Cells % 0 % (-); Platelet Count 219 10^3/uL (130-400); Red Blood Cell Count 6.17 10^6/uL (4.70-6.10); Red Cell Dist. Width 18.2 % (11.5-14.5); White Blood Cell Count 5.1 10^3/uL (4.8-10.8)
[2024-08-06 07:10] LABS: ALT (SGPT) 37 U/L (0-50); AST (SGOT) 52 U/L (17-59); Albumin 3.9 g/dl (3.5-5.0); Alkaline Phosphatase 143 U/L (38-126); Blood Urea Nitrogen 11 mg/dl (9-20); Calcium 9.2 mg/dl (8.4-10.2); Carbon Dioxide 18 mmol/L (22-30); Chloride 102 mmol/L (98-107); Estimated Creatinine Clearance 124 ml/min; Glucose 92 mg/dl (70-99); Potassium 4.8 mmol/L (3.5-5.1); Sodium 137 mmol/L (135-145); Total Bilirubin 0.6 mg/dl (0.2-1.3); Total Protein 7.2 g/dl (6.3-8.2); eGFR > 60.00
[2024-08-06] MEDS: VENTOLIN NEBULES 1.25 MG INH (07:45)
[2024-08-06] MEDS: MUCINEX 1200 MG PO (09:27)
[2024-08-06] MEDS: NICODERM TRANSDERMAL 7 MG TRANSDERM (09:27)
[2024-08-06] MEDS: PROTONIX 40 MG PO (09:27)
[2024-08-06] MEDS: TESSALON PERLES PO (09:28)
[2024-08-06] MEDS: HEPARIN 5000 UNITS SC (09:28)
[2024-08-06] MEDS: METHADONE 100 MG/10 ML 40 MG PO (09:41)
[2024-08-06 11:00] VITALS: BP 135/89
--- NOTE | 2024-08-06 11:16 | W.PN.HOSP.TC ---
Addendum entered and electronically signed by Yassine Deshpande MD 08/06/24 11:53:
Ambulated with nurse and sats 93% with ambulation. Does not need home O2. Discharge today
Time of discharge 38 minutes
Original Note:
Today's Communication/Plan
-
Monitor vital signs see plan
Check home O2 assessment
On antibiotics
Possible discharge today
Assessment / Plan
Assessment / Plan
# Right-sided pneumonia likely aspiration pneumonia given recent N/V
Acute hypoxic respiratory failure secondary to pneumonia. Wean oxygen as tolerated. now on room air; check home o2 eval. Consider pulmonary evaluation if hypoxia worse
start mucinex,tessalon pearls; cw IS
-COVID-negative, influenza negative
-Check sputum culture, strep antigen neg, Legionella -NEG, MRSA
-Check blood culture -NGTD
follow fever curve; if fever persist then will need ID evaluation
-cw zosyn; vanc stopped; MRSA neg; sputum cx contaminant
-cw speech and swallow; ok for regular with thin
Left posterior lower pleuritic chest pain-suspect probably pleurisy. CT chest with b/l PNA; neg for PE
History of amphetamine use
-Last used 8 days ago
Former IV heroin user
-Continue methadone; dose lowered; used to be on much lower dose before and dose recently increased but he has been lethargic majority of the times so lowered the dose. patient aware and agreeable
check UDS + for marijuana,benzos,methadone; benzos likely + since got xanax here in hospital
1 episode of choking 08/03 on grape which he ended up spitting it out
xray without acute finding and shows pneumonia which we already know
Mild hyponatremia
monitor
Marijuana gummy user
Smoker
-Smokes 1 pack of cigarettes per week
-Nicotine patch
Essential hypertension
Anxiety/PTSD
History of liver laceration
History of renal failure secondary to drug overdose
Full code
DVT prophylaxis�heparin
Regular diet
General: No Apparent Distress
HEENT: Moist Mucous Membranes
Respiratory: Rhonchi (RLL), Non Labored Respirations
Cardiac: Regular Rhythm and S1/S2; Negative Tachycardic
Neuro: AO x 3
Psych: Calm; Negative Confused or Agitated
Anticipated Discharge: Today
Subjective/Interval History
-
Date of Service: August 06, 2024
denies pain
Objective Data
-
Labs:
Laboratory Results
08/06/24
05:56
WBC 5.1
Hgb 14.7
Hct 43.4
Plt Count 219
Sodium 137
Potassium 4.8
Chloride 102
Carbon Dioxide 18 L
BUN 11
Creatinine 0.8
Glucose 92
Calcium 9.2
Total Bilirubin 0.6
AST 52
ALT 37
Alkaline Phosphatase 143 H
Vital Signs:
Vital Signs
Temp Pulse Resp BP Pulse Ox
98.4 F 91 16 153/89 97
08/06/24 07:00 08/06/24 07:48 08/06/24 07:48 08/06/24 07:00 08/06/24 07:48
I&O
08/05/24 08/06/24 08/07/24
06:59 06:59 06:59
Intake Total 1900 / 1900 1600 / 1600
Output Total 2580 / 2580 190 / 1899
Balance -680 / -680 -300 / -300
[2024-08-06] MEDS: VENTOLIN NEBULES INH ×2 (11:39→14:49)
--- NOTE | 2024-08-06 12:00 | W.DCSUMMARY ---
Discharge Summary
Discharge Data
Date of Admission: 07/30/24
Date of Discharge: 08/06/24
-
Pending Results: No
Hospital Course
43-year-old male with past medical history of IV drug user on methadone, marijuana use, smoking, anxiety/PTSD, history of liver laceration, essential hypertension came to the hospital with left-sided chest pain. CT of the chest was done which
showed bilateral multifocal pneumonia. Patient chest pain was likely thought was pleuritic in nature from pneumonia. He was initially started on IV antibiotic which improved his symptoms. He also had acute hypoxic respiratory failure secondary to
pneumonia which over time continue to improve and he was off oxygen prior to discharge. Once his symptoms continue to improve and he was off oxygen, he was then discharged on oral antibiotic with instructions to follow-up with all his physicians
outpatient.
Discharge Plan
-
Patient Disposition: [facility]
Discharge Diagnosis/Procedures: Suspect aspiration pneumonia
Acute hypoxic respiratory failure secondary to pneumonia
Pleuritic chest pain
Diet: As tolerated
Activity: As tolerated
Driving Restrictions: As prior to admission
Bathing Restrictions: None
Activity Restrictions/Additional Instructions:
Continue with antibiotics for 2 more days
Referrals:
[facility] [Family Provider] - in less than 1 week
Prescriptions:
New
acetaminophen 325 mg Tablet
650 mg PO Q4HPRN PRN (Reason: mild pain/MORGAN/temp> 100.4F) Qty: 0 0RF
benzonatate 100 mg Capsule
200 mg PO TID PRN (Reason: Cough) Qty: 0 0RF
pantoprazole 40 mg Tablet,Delayed Release (Dr/Ec)
40 mg PO DAILY Qty: 0 0RF
nicotine 7 mg/24 hr Patch 24 Hour
7 mg transdermal DAILY Qty: 0 0RF
guaifenesin 600 mg Tablet Extended Release 12hr
1,200 mg PO Q12 Qty: 28 0RF
amoxicillin-pot clavulanate 875-125 mg tablet
1 tab PO BID 2 Days Qty: 4 0RF
Probiotic 10 billion cell capsule
10,000 mmu cells PO DAILY Qty: 7 0RF
Continued
loperamide [Anti-Diarrheal (loperamide)] 2 mg Tablet
2 mg PO TIDPRN PRN (Reason: diarrhea)
diphenhydramine HCl 25 mg Capsule
25 mg PO BID
ibuprofen 400 mg Tablet
400 mg PO BIDPRN PRN (Reason: mild pain/fever)
Changed
methadone 10 mg/5 mL Solution
40 mg PO DAILY@0700 Qty: 0 0RF
Discharge Orders:
Discharge Patient (As Directed); Ordered 08/06/24
Ordered By: Yassine Deshpande
Discharge Date and Time
Discharge Date/Time: 08/06/24 14:21
Print Language: ICELANDIC
--- NOTE | 2024-08-06 15:15 | CM ---
Addendum entered by Juanita Carrington RN 08/06/24 15:18:
Weaned off oxygen per RN
Original Note:
MD entered order for discharge.
Spoke with Akshat at [facility] made aware of dc.
Guards to transport pt back to [facility].
[facility]
report [phone]

PLAN Retutn to [facility]
== END 2024-08-06 14:21 | DRG 177 ==
LOC: 3 WEST ACU 22:52
PROVIDERS: Internal Medicine; Student in an Organized Health Care Education/Training Program; ADMITTING PHYSICIAN Hospitalist; ATTENDING PHYSICIAN Internal Medicine; EMERGENCY PHYSICIAN Emergency Medicine
DX: J69.0 Pneumonitis due to inhalation of food and vomit (principal); J96.01 Acute respiratory failure with hypoxia; E87.1 Hypo-osmolality and hyponatremia; F15.90 Other stimulant use, unspecified, uncomplicated; F17.210 Nicotine dependence, cigarettes, uncomplicated; I10 Essential (primary) hypertension; F41.9 Anxiety disorder, unspecified; F43.10 Post-traumatic stress disorder, unspecified; R09.1 Pleurisy; Z11.52 Encounter for screening for COVID-19
CPT/HCPCS: 71045; 71046; 71275; 80053; 80202; 80306; 80307; 82962; 83880; 84484; 85025; 85027; 85379; 87040; 87070; 87205; 87449; 87502; 87811; 87880; 87899; 92610; 93005; 94640; 94760; 96361; 96365; 96366; 96367; 96375; 99285; 99406; Q9967